=== PATIENT | female | born 2000 | race Caucasian/White ===

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

== ENCOUNTER 2019-01-16 19:34 | Emergency (ER) | payer MEDICAID ==
[~2019-01-16] VITALS: Ht 160 cm; Wt 72.6 kg
[2019-01-16 19:40] VITALS: BP_SYST 131
--- NOTE | 2019-01-16 19:40 | NUR ---
Patient triaged and placed in waiting room. VSS and patient appears in no acute distress at this time. Accompanied by FAM MEMBER, awaiting available bed, and MD notified of need for MSE.
--- NOTE | 2019-01-16 23:17 | NUR ---
Pt c/o facial pain with bilat ear aches, non-productive coughing, fevers and chills since Monday. Pt states that she has been feeling hot with nausea today.
--- NOTE | 2019-01-16 23:17 | NUR ---
Patient to ER bed 5 to gown for evaluation. Side rails up. Report given to KENNETH ENRIQUE.
--- NOTE | 2019-01-16 23:24 | NUR ---
Dr. Ross at bedside.
[2019-01-17] MEDS ORDERED: AMOXICILLIN 500 MG CAPSULE PO ONE (01:00)
[2019-01-17 01:18] VITALS: BP_SYST 128
--- NOTE | 2019-01-17 01:18 | NUR ---
Patient given written and verbal discharge instructions and verbalizes understanding. ER MD discussed with patient the results and treatment provided. Patient in stable condition. ID arm band removed. Rx of Amoxicillin given. Patient educated on pain management and to follow up with PMD. Pain Scale 0/10. Opportunity for questions provided and answered. Medication side effect fact sheet provided.
== END 2019-01-17 01:18 | disposition home or self-care (01) ==
LOC: SED 19:34
DX: J01.90 Acute sinusitis, unspecified (principal); H66.90 Otitis media, unspecified, unspecified ear; J06.9 Acute upper respiratory infection, unspecified; J02.9 Acute pharyngitis, unspecified
CPT/HCPCS: 36415; 86710; 99283

== ENCOUNTER 2020-06-26 20:58 | Emergency (ER) | payer MEDICAID ==
[~2020-06-26] VITALS: Ht 160 cm; Wt 72.6 kg
[2020-06-26 21:10] VITALS: BP_SYST 111
[2020-06-26] MEDS ORDERED: SULF1TAB48 PO (21:41)
[2020-06-26] MEDS ORDERED: SULFAMETHOXAZOLE/TRIMETHOPR DS 1 TABLET PO ONE ×2 (21:45)
[2020-06-26 21:57] VITALS: BP_SYST 111
== END 2020-06-26 21:57 | disposition home or self-care (01) ==
LOC: SED 20:58
DX: L05.91 Pilonidal cyst without abscess (principal); Z79.899 Other long term (current) drug therapy
CPT/HCPCS: 99283

== ENCOUNTER 2020-06-29 17:49 | Emergency (ER) | payer MEDICAID ==
[~2020-06-29] VITALS: Ht 160 cm; Wt 63.5 kg
[~2020-06-29 17:49] MED LIST: SULF1TAB48 PO
[2020-06-29 18:16] VITALS: BP_SYST 128
[2020-06-29] MEDS ORDERED: LIDOCAINE 1% 10 MG/ML, 20 ML MDV INJ ONE (18:45)
[2020-06-29 20:12] VITALS: BP_SYST 121
== END 2020-06-29 20:12 | disposition home or self-care (01) ==
LOC: SED 17:49
DX: L05.01 Pilonidal cyst with abscess (principal); Z79.899 Other long term (current) drug therapy
CPT/HCPCS: 10080; 99284; J2001

== ENCOUNTER 2020-07-04 22:30 | Emergency (ER) | payer MEDICAID ==
[~2020-07-04] VITALS: Ht 160 cm; Wt 72.6 kg
[2020-07-04 22:42] VITALS: BP_SYST 126
[2020-07-04 23:24] VITALS: BP_SYST 126
== END 2020-07-04 23:24 | disposition home or self-care (01) ==
LOC: SED 22:30
DX: L05.91 Pilonidal cyst without abscess (principal); Z48.00 Encounter for change or removal of nonsurgical wound dressing; Z79.899 Other long term (current) drug therapy
CPT/HCPCS: 99281

== ENCOUNTER 2021-07-13 21:17 | Emergency (ER) | payer MEDICAID ==
[~2021-07-13] VITALS: Ht 160 cm; Wt 77.1 kg
[2021-07-13 22:02] VITALS: BP_SYST 119
[2021-07-13] MEDS ORDERED: LIDOCAINE/EPI 2% 1:100000 20 ML VIAL INJ ONE (23:30)
[2021-07-13] MEDS ORDERED: AMOX1TAB14 PO (23:31)
[2021-07-13] MEDS ORDERED: IBUP-1969 PO (23:31)
[2021-07-13] MEDS ORDERED: TRAM50TA PO (23:31)
[2021-07-14] MEDS ORDERED: TRAM50TA2 PO (03:55)
[2021-07-14 04:09] VITALS: BP_SYST 130
== END 2021-07-14 04:05 | disposition home or self-care (01) ==
LOC: SED 21:17
DX: L02.212 Cutaneous abscess of back [any part, except buttock and flank] (principal)
CPT/HCPCS: 99282; 99283